=== PATIENT | female | born 1980 | race Hispanic/Latino ===

== ENCOUNTER 2021-12-20 11:00 | Emergency (ER) | payer OTHER ==
[~2021-12-20] VITALS: Ht 154.9 cm; Wt 57.4 kg
[2021-12-20] MEDS ORDERED: METHIMAZOLE10 MG (11:20)
[2021-12-20] MEDS ORDERED: CEPHALEXIN500 MG PO (12:14)
== END 2021-12-20 12:30 | disposition home or self-care (01) ==
LOC: FSED 11:13
DX: L60.0 Ingrowing nail (principal); E05.90 Thyrotoxicosis, unspecified without thyrotoxic crisis or storm
CPT/HCPCS: 99283